=== PATIENT | female | born 1980 | race Caucasian/White ===

== ENCOUNTER 2017-01-24 09:00 | Outpatient (CLI) | payer OTHER ==
[2017-01-24 10:33] LABS: Hematocrit 41.2 % (36.0-47.0); Mean Platelet Volume 6.8 fL (7.4-10.4); Red Blood Cell (RBC) Count 4.67 mill/uL (4.20-5.40); White Blood Cell (WBC) Count 5.1 thou/uL (4.8-10.8)
[2017-01-24 11:02] LABS: ALT (SGPT) 15 U/L (8-55); AST (SGOT) 19 U/L (5-34); Alkaline Phosphatase 74 U/L (40-150); Anion Gap 15 mmol/L (10-20); BUN (Urea Nitrogen) 12 mg/dL (7.0-18.7); Bilirubin, Direct 0.2 mg/dL (0.1-0.3); Bilirubin, Total 0.4 mg/dL (0.2-1.2); Calc. Creatinine Clearance 0 mL/min (70-130); Calcium 9.5 mg/dL (7.8-10.44); Carbon Dioxide 26 mmol/L (22-29); Chloride 106 mmol/L (98-107); Estimated GFR-MDRD 72; Protein, Total 6.8 g/dL (6.0-8.3)
== END 2017-01-24 09:01 | disposition home or self-care (01) ==
LOC: LABBT 09:00
PROVIDERS: ATTEND Surgery
DX: Z01.812 Encounter for preprocedural laboratory examination (principal); K82.8 Other specified diseases of gallbladder
CPT/HCPCS: 80048; 80076; 84703; 85027

== ENCOUNTER → 2017-01-25 | Day surgery (SDC) | payer OTHER ==
[2017-01-24 09:25] VITALS: BMI 33.5
[~2017-01-25] MED LIST: Bupivacaine/Epinephrine 0.25% 30 ML VIAL ONE; CEFAZOLIN/Water 2 GM/20 ML SYRINGE ONE; Dexamethasone 20 MG/5 ML VIAL ONE; Fentanyl 100 MCG/2 ML VIAL ONE; Fentanyl 250 MCG/5 ML VIAL ONE; Glycopyrrolate 0.2 MG/ML 5 ML SYRINGE ONE; Indocyanine Green 25 MG/10 ML VIAL ONE; Lidocaine 1% PF 5 ML VIAL ONE; Midazolam HCl 2 mg/2 ml Vial ONE; Ondansetron HCl/PF 4 MG/2 ML Vial ONE; Promethazine HCl 25 MG/ML VIAL ONE; Propofol 200 MG/20 ML VIAL ONE
--- NOTE | 2017-01-25 11:59 | OP ---
DATE OF PROCEDURE: 01/25/2017 PREOPERATIVE DIAGNOSIS: Chronic biliary dyskinesia. POSTOPERATIVE DIAGNOSIS: Chronic biliary dyskinesia. PROCEDURE: [place] full port laparoscopic cholecystectomy. SURGEON: Alfa Plaza M.D. ANESTHESIA: General. ESTIMATED BLOOD LOSS: Minimal. COMPLICATIONS: None. SPECIMEN: Gallbladder. FINDINGS: Chronic cholecystitis. PROCEDURE IN DETAIL: The patient is taken to the operating room and laid supine on the operating jeff m table. After general anesthetic was obtained, the abdomen is prepped and draped in a sterile fashi on. Curved incision was made below the umbilicus. Cautery was used to dissect down to and score the fascia. Abdominal cavity was entered bluntly using a Coleen clamp followed by a 12-mm Ethicon trocar . High-flow pneumoperitoneum was obtained. Left and right abdominal 8 mm robot trocars were placed in the right upper quadrant 5 mm assist port was placed. The robot was brought in after the patient placed in a reverse Trendelenburg position and docked to the robot. Surgeon goes to the console. Th e peritoneum and gallbladder was opened anteriorly and posteriorly. Critical view triangle was seen showing only the cystic duct and cystic artery branching from medial to lateral no other branching st ructures. ICD green dye had been given preop and immunosuppressants used to confirm the anatomy. Tw o clips were placed proximally and one distally, and the cystic duct cut using laparoscopic scissors. Cystic artery was taken in the same way. Cautery was used to dissect the gallbladder out of the ga llbladder fossa. The gallbladder was placed in an Endo catch bag. It would be brought out from the 12-mm port at the end of procedure. Surgeon has scrubbed back in to the bedside. All port sites wer e infiltrated using local anesthetic. There was no bleeding or bile in the liver bed. All ports wer e removed under direct visualization without bleeding. Pneumoperitoneum was let down. PDS was used to close the fascial defect below the umbilicus. All incisions were irrigated and closed using 4-0 M onocryl and Dermabond. The patient went to recovery in stable condition. All instrument counts, nee dle counts, and lap counts were correct.
== END ==
LOC: SDC 05:57
PROVIDERS: ATTEND Surgery
PROC: 0FT44ZZ Resection of Gallbladder, Percutaneous Endoscopic Approach (ICD-10-PCS; principal; 2017-01-25)
DX: K81.1 Chronic cholecystitis (principal); K82.8 Other specified diseases of gallbladder; Z88.0 Allergy status to penicillin
CPT/HCPCS: 88304; J1100; J2001; J2250; J2405; J2550; J2704; J3010

== ENCOUNTER 2021-07-20 07:00 | Inpatient (IN) | payer OTHER ==
[2021-07-20 14:52] VITALS: BMI 37.2
[2021-07-23] MEDS ORDERED: Lidocaine 1% w/Epinephrine 1:100K 20 ML VIAL ONE (06:50)
[2021-07-23] MEDS ORDERED: Bupivacaine 0.25% 10 ML VIAL ONE (06:50)
[2021-07-23] MEDS ORDERED: Scopolamine 1.5 mg/72 hour Patch ONE (07:15)
[2021-07-23] MEDS ORDERED: Levofloxacin 500 mg/D5W 100 ml Premix Bag ONE (07:25)
[2021-07-23] MEDS ORDERED: Fentanyl 250 MCG/5 ML VIAL ONE (07:29)
[2021-07-23] MEDS ORDERED: PROPOFOL 40 ML ONE (07:29)
[2021-07-23] MEDS ORDERED: PROPOFOL 20 ML ONE (07:30)
[2021-07-23] MEDS ORDERED: Rocuronium Bromide 10 MG/ML (10ML VIAL) ONE (07:38)
[2021-07-23] MEDS ORDERED: PROPOFOL 200 MG/20 ML VIAL ONE (07:38)
[2021-07-23] MEDS ORDERED: Dexamethasone 20 MG/5 ML VIAL ONE (07:38)
[2021-07-23] MEDS ORDERED: ePHEDrine 50 MG/ML VIAL ONE (07:38)
[2021-07-23] MEDS ORDERED: Glycopyrrolate 0.2 MG/ML 5 ML SYRINGE ONE (07:38)
[2021-07-23] MEDS ORDERED: Lidocaine 1% PF 5 ML VIAL ONE (07:38)
[2021-07-23] MEDS ORDERED: Ketorolac Tromethamine 30 MG/ML VIAL ONE (07:38)
[2021-07-23] MEDS ORDERED: Ondansetron PF 4 MG/2 ML Vial ONE (07:38)
[2021-07-23] MEDS ORDERED: Lidocaine 2% Jelly 5 ML TUBE ONE (07:52)
[2021-07-23] MEDS ORDERED: Ondansetron PF 4 MG/2 ML Vial IVP PRN ×2 (08:17→11:02)
[2021-07-23] MEDS ORDERED: Ondansetron HCl/PF 4 MG/2 ML Vial IVP PRN (08:17)
[2021-07-23] MEDS ORDERED: Naloxone HCl 0.4 mg/ml Vial IV PRN (08:17)
[2021-07-23] MEDS ORDERED: diphenhydrAMINE 50 MG/ML VIAL IVP PRN ×2 (08:17→11:02)
[2021-07-23] MEDS ORDERED: Promethazine HCl 25 MG/ML VIAL IM PRN ×3 (08:17→11:02)
[2021-07-23] MEDS ORDERED: fentaNYL Citrate/PF 2,000 MCG in Sodium Chloride 0.9% 60 ML IV PRN (08:17)
[2021-07-23] MEDS ORDERED: Promethazine HCl 25 MG/ML VIAL IVPB PRN (08:17)
[2021-07-23] MEDS ORDERED: diphenhydrAMINE 25 MG CAP PO PRN (08:17)
[2021-07-23] MEDS ORDERED: diphenhydrAMINE 50 MG/ML VIAL IM PRN (08:17)
[2021-07-23] MEDS ORDERED: Communication Order-Pharmacy FS SCH (08:30)
[2021-07-23] MEDS ORDERED: Promethazine HCl 25 MG/ML VIAL ONE (10:19)
[2021-07-23] MEDS ORDERED: hydrALAZINE 20 MG/ML VIAL SLOW IVP PRN (11:02)
[2021-07-23] MEDS ORDERED: Dextrose 50% Abboject 50 ML SYRINGE SLOW IVP PRN (11:02)
[2021-07-23] MEDS ORDERED: Dextrose 5% in Water 1,000 ML IV PRN (11:02)
[2021-07-23] MEDS ORDERED: Hydrocodone-Acetamin 15 ML UDCUP PO PRN (11:02)
[2021-07-23] MEDS: D5 1/2 NS w/20 mEq KCL 1,000 ML IV SCH ×2 (11:43→21:53)
[2021-07-23] MEDS ORDERED: Simethicone Chewable 80 MG TAB PO PRN (23:43)
[2021-07-24 04:00] VITALS: TEMP 99.2
[2021-07-24 05:47] LABS: Anion Gap 12 mmol/L (10-20); BUN (Urea Nitrogen) 6 mg/dL (7.0-18.7); Calc. Creatinine Clearance 135 mL/min (70-130); Calcium 8.5 mg/dL (7.8-10.44); Carbon Dioxide 23 mmol/L (22-29); Chloride 108 mmol/L (98-107); Glucose 118 mg/dL (70-105); Potassium 3.7 mmol/L (3.5-5.1); Sodium 139 mmol/L (136-145)
[2021-07-24 05:54] LABS: #Monocytes 0.6 thou/uL (0.11-0.59); #Neutrophils 5.9 thou/uL (1.40-6.50); %Basophils 0.2 % (0.0-1.0); %Eosinophils 0.1 % (0.0-10.0); %Monocytes 6.8 % (0.0-10.0); %Neutrophils 69.9 % (42.0-75.0); Mean Corpuscular HGB CONC 33.9 g/dL (32.0-36.0); Mean Corpuscular Hemoglobin 30.7 pg (27.0-31.0); Mean Corpuscular Volume 90.7 fL (78.0-98.0); Mean Platelet Volume 7.1 fL (7.4-10.4); Platelet Count 287 thou/uL (130-400); Red Blood Cell (RBC) Count 4.24 mill/uL (4.20-5.40); White Blood Cell (WBC) Count 8.5 thou/uL (4.8-10.8)
[2021-07-24] MEDS ORDERED: Hydrocodone-Acetamin 15 ML UDCUP PO PRN (06:01)
[2021-07-24] MEDS: D5 1/2 NS w/20 mEq KCL 1,000 ML IV SCH (07:26)
[2021-07-24 07:35] VITALS: BP 141/81
[2021-07-24] MEDS ORDERED: Pantoprazole 40 MG VIAL IVP SCH (09:00)
[2021-07-24] MEDS ORDERED: DULoxetine 60 MG CAP PO SCH ×2 (09:00)
== END 2021-07-24 10:40 | disposition home or self-care (01) | DRG 621 ==
LOC: SURG A 07-23 06:10 → SJJU 07-23 10:57
PROVIDERS: ADMIT Surgery; ATTEND Surgery
PROC: 0DB64Z3 Excision of Stomach, Percutaneous Endoscopic Approach, Vertical (ICD-10-PCS; principal; 2021-07-23)
PROC: 8E0W4CZ Robotic Assisted Procedure of Trunk Region, Percutaneous Endoscopic Approach (ICD-10-PCS; 2021-07-23)
DX: E66.01 Morbid (severe) obesity due to excess calories (principal); Z68.37 Body mass index [BMI] 37.0-37.9, adult; Z20.822 Contact with and (suspected) exposure to COVID-19; F41.9 Anxiety disorder, unspecified; Z90.49 Acquired absence of other specified parts of digestive tract; Z79.899 Other long term (current) drug therapy; Z88.1 Allergy status to other antibiotic agents
CPT/HCPCS: 36415; 80048; 85025; 88307; 94760; C9113; J1100; J1885; J1956; J2405; J2550; J2704; J3010; J3480; J3490; S0020

== ENCOUNTER 2021-07-20 07:16 | Outpatient (CLI) | payer BC ==
[2021-07-20 20:27] LABS: SARS-CoV-2 PCR by NAA Not Detected (NotDetected)
== END 2021-07-20 07:17 | disposition home or self-care (01) ==
LOC: LABBT 07:16
PROVIDERS: ATTEND Surgery
DX: Z01.818 Encounter for other preprocedural examination (principal); E66.01 Morbid (severe) obesity due to excess calories; Z20.822 Contact with and (suspected) exposure to COVID-19
CPT/HCPCS: 71046; 93005; 93010; U0003; U0005

== ENCOUNTER 2021-07-20 09:10 | Outpatient (CLI) | payer BC | END 2021-07-20 09:11 | disposition home or self-care (01) | LOC: DTY/OP 09:10 | PROVIDERS: ATTEND Surgery | DX: Z01.818 Encounter for other preprocedural examination (principal); E66.01 Morbid (severe) obesity due to excess calories; Z68.37 Body mass index [BMI] 37.0-37.9, adult; Z71.3 Dietary counseling and surveillance | CPT/HCPCS: 97802 ==